=== PATIENT | female | born 1950 | race Caucasian/White ===

== ENCOUNTER 2018-05-23 18:32 | Emergency (ER) | payer MEDICARE ==
[2018-05-23 18:55] VITALS: RESP 18
--- NOTE | 2018-05-23 19:21 | ED ---
General Adult HPI - General Chief complaint: Recheck/Abnormal Lab/Rx Stated complaint: HTN Time Seen by Provider: 05/23/18 19:03 Source: patient, RN notes reviewed, old records reviewed Mode of arrival: ambulatory Limitations: no limitations - History of Present Illness Initial comments: 67-year-old female presented for evaluation of palpitations, dyspnea, and elevated blood pressure. Patient's chief complaint is elevated blood pressure, she noted a blood pressure of 198/115 at home. No history of hypertension. She states that with this she had a flushed feeling and felt some palpitations. She denies chest pain associated with this. No jaw pain, no neck pain. She has had dyspnea for the past 20 years which is unchanged. She also has anxiety and panic attacks. She was recently told by her electrical project manager that she has mitral regurgitation and will eventually need surgery. She denies any worsening lower extremity swelling or edema. No recent medication changes. Patient has known history of mitral prolapse. No history of A. fib, no history of CAD. - Related Data Allergies Allergy/AdvReac Type Severity Reaction Status Date / Time Penicillins Allergy Swelling Verified 05/23/18 18:55 Review of Systems ROS Statement: Those systems with pertinent positive or pertinent negative responses have been documented in the HPI. ROS Other: All systems not noted in ROS Statement are negative. Past Medical History Past Medical History: Hyperlipidemia, Thyroid Disorder Additional Past Medical History / Comment(s): bacteriavium, valve regurgatation History of Any Multi-Drug Resistant Organisms: None Reported Additional Past Surgical History / Comment(s): back surgery, bacteriavium removal, stomach surgery Past Psychological History: Anxiety, Panic Disorder Smoking Status: Former smoker Past Alcohol Use History: None Reported Past Drug Use History: None Reported General Exam Limitations: no limitations General appearance: alert, in no apparent distress Head exam: Present: atraumatic, normocephalic Eye exam: Present: normal appearance, PERRL ENT exam: Present: normal exam Neck exam: Present: normal inspection. Absent: tenderness, meningismus Respiratory exam: Present: normal lung sounds bilaterally. Absent: respiratory distress, rales Cardiovascular Exam: Present: tachycardia, irregular rhythm, systolic murmur GI/Abdominal exam: Present: soft. Absent: distended, tenderness, guarding Extremities exam: Present: normal capillary refill. Absent: pedal edema Neurological exam: Present: alert, oriented X3, CN II-XII intact. Absent: motor sensory deficit Psychiatric exam: Present: normal affect, normal mood Skin exam: Present: warm, dry, intact. Absent: cyanosis, diaphoretic Course Vital Signs 05/23/18 05/23/18 05/23/18 18:51 21:30 21:40 Temperature 98.8 F 98.1 F Pulse Rate 118 H Respiratory 18 18 Rate Blood Pressure 160/83 150/79 O2 Sat by Pulse 96 95 Oximetry EKG Findings - EKG Comments: EKG Findings:: EKG: Sinus rhythm with PACs, Q waves in the inferior leads, ventricular rate 94, W[place] interval 138, no ST segment elevation or depression Medical Decision Making - Medical Decision Making 67-year-old female presenting with elevated blood pressure. Patient does report dyspnea although this has been present for the past 20 years. She was concerned because she was recently told that she has mitral regurgitation and may require surgery. On examination has no clinical signs of heart failure, no JVD, no rales on lung auscultation, no peripheral edema. Chest x-ray obtained, negative for pulmonary disease, no cardiomegaly, patient has normal CBC, normal CMP, troponin and BNP are negative. Patient is reassured and reevaluation. She has significantly improved blood pressure although she is mildly hypertensive 150/89. Heart rate is in the 80s regular. She will be given outpatient cardiology follow-up. - Lab Data Result diagrams: 05/23/18 19:47 05/23/18 19:47 Lab Results 05/23/18 05/23/18 05/23/18 Range/Units 19:47 19:47 19:47 WBC 5.6 (3.8-10.6) k/uL RBC 4.30 (3.80-5.40) m/uL Hgb 13.8 (11.4-16.0) gm/dL Hct 42.2 (34.0-46.0) % MCV 98.1 (80.0-100.0) fL MCH 32.1 (25.0-35.0) pg MCHC 32.8 (31.0-37.0) g/dL RDW 13.2 (11.5-15.5) % Plt Count 232 (150-450) k/uL Neutrophils % 54 % Lymphocytes % 33 % Monocytes % 6 % Eosinophils % 5 % Basophils % 1 % Neutrophils # 3.0 (1.3-7.7) k/uL Lymphocytes # 1.8 (1.0-4.8) k/uL Monocytes # 0.3 (0-1.0) k/uL Eosinophils # 0.3 (0-0.7) k/uL Basophils # 0.1 (0-0.2) k/uL PT (9.0-12.0) sec INR (<1.2) APTT (22.0-30.0) sec Sodium 140 (137-145) mmol/L Potassium 3.9 (3.5-5.1) mmol/L Chloride 106 (98-107) mmol/L Carbon Dioxide 25 (22-30) mmol/L Anion Gap 9 mmol/L BUN 16 (7-17) mg/dL Creatinine 0.64 (0.52-1.04) mg/dL Est GFR (CKD-EPI)AfAm >90 (>60 ml/min/1.73 sqM) Est GFR (CKD-EPI)NonAf >90 (>60 ml/min/1.73 sqM) Glucose 206 H (74-99) mg/dL Calcium 9.2 (8.4-10.2) mg/dL Magnesium 2.0 (1.6-2.3) mg/dL Total Bilirubin 0.4 (0.2-1.3) mg/dL AST 32 (14-36) U/L ALT 30 (9-52) U/L Alkaline Phosphatase 82 (38-126) U/L Total Creatine Kinase 254 H (30-135) U/L CK-MB (CK-2) 2.8 H (0.0-2.4) ng/mL CK-MB (CK-2) Rel Index 1.1 Troponin I <0.012 (0.000-0.034) ng/mL NT-Pro-B Natriuret Pep pg/mL Total Protein 7.2 (6.3-8.2) g/dL Albumin 4.1 (3.5-5.0) g/dL 05/23/18 05/23/18 Range/Units 19:47 19:47 WBC (3.8-10.6) k/uL RBC (3.80-5.40) m/uL Hgb (11.4-16.0) gm/dL Hct (34.0-46.0) % MCV (80.0-100.0) fL MCH (25.0-35.0) pg MCHC (31.0-37.0) g/dL RDW (11.5-15.5) % Plt Count (150-450) k/uL Neutrophils % % Lymphocytes % % Monocytes % % Eosinophils % % Basophils % % Neutrophils # (1.3-7.7) k/uL Lymphocytes # (1.0-4.8) k/uL Monocytes # (0-1.0) k/uL Eosinophils # (0-0.7) k/uL Basophils # (0-0.2) k/uL PT 9.8 (9.0-12.0) sec INR 1.0 (<1.2) APTT 23.6 (22.0-30.0) sec Sodium (137-145) mmol/L Potassium (3.5-5.1) mmol/L Chloride (98-107) mmol/L Carbon Dioxide (22-30) mmol/L Anion Gap mmol/L BUN (7-17) mg/dL Creatinine (0.52-1.04) mg/dL Est GFR (CKD-EPI)AfAm (>60 ml/min/1.73 sqM) Est GFR (CKD-EPI)NonAf (>60 ml/min/1.73 sqM) Glucose (74-99) mg/dL Calcium (8.4-10.2) mg/dL Magnesium (1.6-2.3) mg/dL Total Bilirubin (0.2-1.3) mg/dL AST (14-36) U/L ALT (9-52) U/L Alkaline Phosphatase (38-126) U/L Total Creatine Kinase (30-135) U/L CK-MB (CK-2) (0.0-2.4) ng/mL CK-MB (CK-2) Rel Index Troponin I (0.000-0.034) ng/mL NT-Pro-B Natriuret Pep 125 pg/mL Total Protein (6.3-8.2) g/dL Albumin (3.5-5.0) g/dL Disposition Clinical Impression: Hypertension Disposition: HOME SELF-CARE Condition: Good Instructions: Hypertension (ED), Mitral Regurgitation (ED) Is patient prescribed a controlled substance at d/c from ED?: No Referrals: Cindy Bear MD [Primary Care Provider] - 1-2 days Time of Disposition: 21:46
[2018-05-23 20:03] LABS: Basophils # (A) 0.1 k/uL (0-0.2); Basophils % (A) 1 %; Eosinophils # (A) 0.3 k/uL (0-0.7); Eosinophils % (A) 5 %; HCT 42.2 % (34.0-46.0); HGB 13.8 gm/dL (11.4-16.0); Lymphocytes # (A) 1.8 k/uL (1.0-4.8); Lymphocytes % (A) 33 %; MCH 32.1 pg (25.0-35.0); MCHC 32.8 g/dL (31.0-37.0); MCV 98.1 fL (80.0-100.0); Mean Platelet Volume 6.9; Monocytes # (A) 0.3 k/uL (0-1.0); Monocytes % (A) 6 %; Neutrophils % (A) 54 %; Platelet Count 232 k/uL (150-450); RDW 13.2 % (11.5-15.5); WBC 5.6 k/uL (3.8-10.6)
[2018-05-23 20:16] LABS: Partial Thromboplastin Time 23.6 sec (22.0-30.0); Prothrombin Time 9.8 sec (9.0-12.0)
[2018-05-23 20:17] LABS: ALT 30 U/L (9-52); AST 32 U/L (14-36); Albumin 4.1 g/dL (3.5-5.0); Alkaline Phosphatase 82 U/L (38-126); Anion Gap 9 mmol/L; Blood Urea Nitrogen 16 mg/dL (7-17); Calcium 9.2 mg/dL (8.4-10.2); Carbon Dioxide 25 mmol/L (22-30); Chloride 106 mmol/L (98-107); Glucose 206 mg/dL (74-99); Potassium 3.9 mmol/L (3.5-5.1); Sodium 140 mmol/L (137-145); Total Bilirubin 0.4 mg/dL (0.2-1.3); Total Protein 7.2 g/dL (6.3-8.2)
--- NOTE | 2018-05-23 20:28 | XR ---
EXAMINATION TYPE: XR chest 2V DATE OF EXAM: 05/23/2018 COMPARISON: NONE HISTORY: Chest pain TECHNIQUE: Frontal and lateral views of the chest are obtained. FINDINGS: Heart and mediastinum are normal. Lungs are clear. Diaphragm is normal. Bony thorax is int act. Pulmonary vascularity is normal. IMPRESSION: Normal chest. No change.
[2018-05-23 20:30] LABS: Creatine Kinase 254 U/L (30-135)
[2018-05-23 20:42] LABS: Creatine Kinase MB 2.8 ng/mL (0.0-2.4); Troponin I <0.012 ng/mL (0.000-0.034)
[2018-05-23 21:39] VITALS: BP 150/79
[2018-05-23 21:40] VITALS: TEMP 98.1
--- NOTE | 2018-05-23 21:49 | ED ---
Medical Decision Making - Lab Data Result diagrams: 05/23/18 19:47 05/23/18 19:47 Lab Results 05/23/18 05/23/18 05/23/18 Range/Units 19:47 19:47 19:47 WBC 5.6 (3.8-10.6) k/uL RBC 4.30 (3.80-5.40) m/uL Hgb 13.8 (11.4-16.0) gm/dL Hct 42.2 (34.0-46.0) % MCV 98.1 (80.0-100.0) fL MCH 32.1 (25.0-35.0) pg MCHC 32.8 (31.0-37.0) g/dL RDW 13.2 (11.5-15.5) % Plt Count 232 (150-450) k/uL Neutrophils % 54 % Lymphocytes % 33 % Monocytes % 6 % Eosinophils % 5 % Basophils % 1 % Neutrophils # 3.0 (1.3-7.7) k/uL Lymphocytes # 1.8 (1.0-4.8) k/uL Monocytes # 0.3 (0-1.0) k/uL Eosinophils # 0.3 (0-0.7) k/uL Basophils # 0.1 (0-0.2) k/uL PT (9.0-12.0) sec INR (<1.2) APTT (22.0-30.0) sec Sodium 140 (137-145) mmol/L Potassium 3.9 (3.5-5.1) mmol/L Chloride 106 (98-107) mmol/L Carbon Dioxide 25 (22-30) mmol/L Anion Gap 9 mmol/L BUN 16 (7-17) mg/dL Creatinine 0.64 (0.52-1.04) mg/dL Est GFR (CKD-EPI)AfAm >90 (>60 ml/min/1.73 sqM) Est GFR (CKD-EPI)NonAf >90 (>60 ml/min/1.73 sqM) Glucose 206 H (74-99) mg/dL Calcium 9.2 (8.4-10.2) mg/dL Magnesium 2.0 (1.6-2.3) mg/dL Total Bilirubin 0.4 (0.2-1.3) mg/dL AST 32 (14-36) U/L ALT 30 (9-52) U/L Alkaline Phosphatase 82 (38-126) U/L Total Creatine Kinase 254 H (30-135) U/L CK-MB (CK-2) 2.8 H (0.0-2.4) ng/mL CK-MB (CK-2) Rel Index 1.1 Troponin I <0.012 (0.000-0.034) ng/mL NT-Pro-B Natriuret Pep pg/mL Total Protein 7.2 (6.3-8.2) g/dL Albumin 4.1 (3.5-5.0) g/dL 05/23/18 05/23/18 Range/Units 19:47 19:47 WBC (3.8-10.6) k/uL RBC (3.80-5.40) m/uL Hgb (11.4-16.0) gm/dL Hct (34.0-46.0) % MCV (80.0-100.0) fL MCH (25.0-35.0) pg MCHC (31.0-37.0) g/dL RDW (11.5-15.5) % Plt Count (150-450) k/uL Neutrophils % % Lymphocytes % % Monocytes % % Eosinophils % % Basophils % % Neutrophils # (1.3-7.7) k/uL Lymphocytes # (1.0-4.8) k/uL Monocytes # (0-1.0) k/uL Eosinophils # (0-0.7) k/uL Basophils # (0-0.2) k/uL PT 9.8 (9.0-12.0) sec INR 1.0 (<1.2) APTT 23.6 (22.0-30.0) sec Sodium (137-145) mmol/L Potassium (3.5-5.1) mmol/L Chloride (98-107) mmol/L Carbon Dioxide (22-30) mmol/L Anion Gap mmol/L BUN (7-17) mg/dL Creatinine (0.52-1.04) mg/dL Est GFR (CKD-EPI)AfAm (>60 ml/min/1.73 sqM) Est GFR (CKD-EPI)NonAf (>60 ml/min/1.73 sqM) Glucose (74-99) mg/dL Calcium (8.4-10.2) mg/dL Magnesium (1.6-2.3) mg/dL Total Bilirubin (0.2-1.3) mg/dL AST (14-36) U/L ALT (9-52) U/L Alkaline Phosphatase (38-126) U/L Total Creatine Kinase (30-135) U/L CK-MB (CK-2) (0.0-2.4) ng/mL CK-MB (CK-2) Rel Index Troponin I (0.000-0.034) ng/mL NT-Pro-B Natriuret Pep 125 pg/mL Total Protein (6.3-8.2) g/dL Albumin (3.5-5.0) g/dL Disposition Clinical Impression: Hypertension Disposition: HOME SELF-CARE Condition: Good Instructions: Mitral Regurgitation (ED), Hypertension (ED) Is patient prescribed a controlled substance at d/c from ED?: No Referrals: Cindy Bear MD [Primary Care Provider] - 1-2 days Justin Herring MD [STAFF PHYSICIAN] - 1-2 days Time of Disposition: 21:48
[2018-05-23 22:22] VITALS: PULSE 84
== END 2018-05-23 21:55 | disposition home or self-care (01) ==
LOC: EC 18:32
DX: I10 Essential (primary) hypertension (principal); R00.2 Palpitations; F41.0 Panic disorder [episodic paroxysmal anxiety]; Z87.891 Personal history of nicotine dependence; Z88.0 Allergy status to penicillin
CPT/HCPCS: 36415; 71046; 80053; 82550; 82553; 83735; 83880; 84484; 85025; 85610; 85730; 93005; 99284

== ENCOUNTER → 2018-08-16 | Outpatient (CLI) | payer MEDICARE ==
[2018-08-16 13:33] LABS: HCT 41.5 % (34.0-46.0); HGB 13.8 gm/dL (11.4-16.0); MCH 32.2 pg (25.0-35.0); MCHC 33.4 g/dL (31.0-37.0); MCV 96.5 fL (80.0-100.0); Mean Platelet Volume 7.1; Platelet Count 238 k/uL (150-450); RDW 12.9 % (11.5-15.5); WBC 5.6 k/uL (3.8-10.6)
[2018-08-16 13:34] LABS: Appearance,Urine Clear (Clear); Bilirubin,Urine Negative (Negative); Blood,Urine Negative (Negative); Color,Urine Yellow; Glucose,Urine (UA) Negative (Negative); Ketones,Urine Negative (Negative); Leukocyte Esterase,Urine Negative (Negative); Nitrite,Urine Negative (Negative); PH, Urine 6.5 (5.0-8.0); Protein,Urine Negative (Negative); Specific Gravity,Urine 1.018 (1.001-1.035)
[2018-08-16 13:42] LABS: ALT 33 U/L (9-52); AST 25 U/L (14-36); Albumin 4.6 g/dL (3.5-5.0); Alkaline Phosphatase 88 U/L (38-126); Anion Gap 5 mmol/L; Blood Urea Nitrogen 15 mg/dL (7-17); Calcium 9.5 mg/dL (8.4-10.2); Carbon Dioxide 31 mmol/L (22-30); Chloride 103 mmol/L (98-107); Glucose 97 mg/dL (74-99); Potassium 4.8 mmol/L (3.5-5.1); Sodium 139 mmol/L (137-145); Total Bilirubin 0.6 mg/dL (0.2-1.3); Total Protein 7.6 g/dL (6.3-8.2)
[2018-08-16 13:45] LABS: INR 0.9 (<1.2); Partial Thromboplastin Time 24.3 sec (22.0-30.0); Prothrombin Time 10.1 sec (9.0-12.0)
== END | disposition home or self-care (01) ==
LOC: LABPAT 12:49
PROVIDERS: ATTEND Orthopaedic Surgery
DX: Z01.812 Encounter for preprocedural laboratory examination (principal)
CPT/HCPCS: 80053; 81003; 85027; 85610; 85730; 87070

== ENCOUNTER 2018-08-31 12:40 | Inpatient (IN) | payer MEDICARE ==
[2018-08-24 18:09] VITALS: BMI 29.7
[~2018-08-31 12:40] MED LIST: ACETAMINOPHEN TAB 500 MG TAB PO ONE; DEXAMETHASONE SOD PHOSPHATE 10 MG/ML 1 ML VIAL IV ONE; HYDROmorphone 0.5 MG/0.5 ML SYRINGE IVP PRN; LIDOCAINE 1% 20 ML VIAL (10MG/ML) FOR IV START INTRADERMA PRN; MELOXICAM 7.5 MG TAB PO ONE; ONDANSETRON 4 MG/2 ML VIAL IVP ONE; ROPIVACAINE 246.25 MG, EPINEPHrine 0.5 MG, KETOROLAC 30 MG, cloNIDine HCL/PF 80 MCG, WA... MISCELLANE ONE; SCOPOLAMINE 1.5MG/72HR PATCH TRANSDERM ONE; TRANEXAMIC ACID 1,000 MG in SODIUM CHLORIDE 0.9% 50 ML IVPB ONE; ceFAZolin IN SWFI 2 GM/20 ML SYRINGE IVP ONE
[2018-08-31] MEDS: LACTATED RINGERS 1,000 ML IV SCH (13:37)
[2018-08-31 13:47] LABS: Glucose,Whole Blood 103 mg/dL (75-99)
[2018-08-31] MEDS ORDERED: MIDAZOLAM 2 MG/2 ML VIAL IVP ONE (14:16)
[2018-08-31] MEDS ORDERED: PROPOFOL 10 MG/ML 20 ML VIAL IV ONE (14:32)
[2018-08-31] MEDS ORDERED: fentaNYL (PF) 50 MCG/ML 2 ML AMP ONE (14:32)
[2018-08-31] MEDS ORDERED: SODIUM CHLORIDE 0.9% 100 ML BAG ONE (14:32)
[2018-08-31] MEDS ORDERED: MIDAZOLAM 2 MG/2 ML VIAL ONE (14:32)
[2018-08-31] MEDS ORDERED: TRANEXAMIC ACID 1,000 MG/10 ML VIAL ONE (14:32)
[2018-08-31] MEDS ORDERED: ROPIVACAINE 1,100 MG, SODIUM CHLORIDE 0.9% 500 ML 330 ML MISCELLANE PRN ×2 (14:35)
--- NOTE | 2018-08-31 14:36 | P.ONQ ---
Anesthesiology Proc Note - PNB - Peripheral Nerve Block Performed Left Adductor Canal Infusion Time Out Performed: Yes Procedure Start Time: 14:15 Procedure Stop Time: 14:25 Indication: Acute Post-Operative Pain, Analgesia, Requested by physician Sedation Type: Sedate with meaningful contact maintained Preparation: Sterile Prep Position: Supine Catheter: Indwelling Needle Types: On-Q Needle Size: 100mm (4") Needle Gauge: 21 Technique: Ultrasound Injectate: 0.5% Ropivacaine (see comment for volume) (20cc) Blood Aspirated: No Pain Paresthesia on Injection Noted: No Resistance on Injection: Normal Events: Uneventful and Well Tolerated
[2018-08-31] MEDS ORDERED: ceFAZolin 3,000 MG in SODIUM CHLORIDE 0.9% IRRIGATIO 3,000 ML IRRIGATION ONE (15:22)
[2018-08-31] MEDS ORDERED: LACTATED RINGERS 1,000 ML IV ONE (16:08)
--- NOTE | 2018-08-31 16:08 | P.OP ---
Date of Procedure: 08/31/18 Preoperative Diagnosis: Severe osteoarthritis left knee Postoperative Diagnosis: Severe osteoarthritis left knee Procedure(s) Performed: left total knee arthroplasty Implants: Ac and Nephew Journey II CR Oxinium cruciate retaining femoral component size 5, left Ac & Nephew Journey left nonporous tibial baseplate size 3 Ac & Nephew Journey II, XLPE CR articular insert, size 12 mm, Size 3-4 left Ac & Nephew Journey BCS resurfacing oval patellar component, 29 mm All components were cemented using Pal[place]os R bone cement.. The articulation is Oxinium on polyethylene. Anesthesia: spinal Surgeon: Tutu Victor Oil Expert #1: Delfina Yanes Estimated Blood Loss (ml): 25 Pathology: other (Bone and cartilage) Condition: stable Disposition: PACU Indications for Procedure: After failure of conservative treatment we discussed the surgical and nonsurgical treatment options at length. Patient wishes to proceed with a total knee arthroplasty. Complications specific to this procedure were discussed at length, including but not limited to infection, bleeding, stiffness , and nerve injury. Patient is aware of all these complications and informed consent was obtained Operative Findings: The operative findings are consistent with severe osteoarthritis of the left knee Description of Procedure: Patient was seen in the preoperative area consent was reviewed and operative site was marked with a skin marker. An adductor canal pain catheter was placed by anesthesia in the preoperative area. Patient was then brought to the operating room and given preoperative antibiotics intravenously. A spinal anesthetic was administered by the anesthesia department. A tourniquet was placed on the upper thigh and the lower extremity was prepped and draped in usual sterile fashion. A gram of transexamic acid was given. A universal timeout was then performed which confirmed the patient's name, surgical site, ALLERGIES, and consent. The lower extremity was then exsanguinated and tourniquet was inflated to 250 mmHg. A standard and anterior midline approach to the knee was performed. The skin and subcutaneous tissue was dissected down to the patellar tendon. A medial parapatellar arthrotomy was then performed. The knee was then extended, the patellar was everted, and the knee was again flexed. Anterior horns of both menisci were excised, and a release was performed to the posterior medial aspect of the knee. On gross visual inspection, there was complete loss of articular cartilage in the medial and patellofemoral joint spaces. There was also significant cartilage damage in the lateral compartment. There were multiple periarticular osteophytes which were then removed with a Ronguer. The femoral canal was then opened with the appropriate drill, and the intramedullary femoral cutting guide was then placed and set for 5 of valgus. The distal femoral cutting block was then pinned in place, and the distal femur was then cut. The cutting block was then removed and the cut was checked for flatness. Next, the sizing guide was then placed and set for 3 external rotation based off of the epicondylar axis and Whitesides line. After the femur was sized, the appropriate 4-in-1 cutting block was then pinned in place. The anterior condyles were cut without notching. The posterior and chamfer cuts were performed while protecting the collateral ligaments. The cutting block was then removed, and the femoral canal was plugged with autologous bone. Attention was then directed to the tibia. The remaining ACL was removed with a Ronguer, and the tibia was then gently subluxed forward with a large bent knee retractor. Any remaining menisci was excised. The posterior lateral corner was cauterized in order to cauterize the lateral geniculate artery. The extra medullary tibial cutting guide was then placed, set for the appropriate rotation , slope, and depth of resection. The proximal tibia cutting guide was then pinned in place. Proximal tibia was then cut and sized. Next trials were then placed with the appropriate-sized insert. The knee was able to fully extend and flex to 130 and was stable throughout all range of motion. The knee was then extended, patella everted. Patella was then measured, and then using an osteotomy guide, the patella was cut at the appropriate level. The patella was then measured and drilled and the patella trial was then placed. The knee was then taken through range of motion with the patella trial and the patella tracked normally. The knee was then extended patella trial was then removed and the patella was everted. Knee was then flexed and lug holes were drilled through the femoral trial and the femoral trial was then removed. The tibial was then exposed, and the tibial broach guide was then pinned in place after it was set for the appropriate rotation to allow for the most coverage without overhang. The tibia was then reamed and broached. The cut surfaces of bone were then irrigated with pulsatile lavage. The posterior structures were injected with the ropivacaine solution. The knee was also irrigated with Irrisept solution. The components were then opened, the cement was mixed, and the components were then cemented in place. The cement was allowed to harden with the knee in full extension. While the cement was hardening, the remaining soft tissues were then injected with a ropivacaine solution, which consisted of 246.25 mg of ropivacaine, 0.5 mg of epinephrine, 30 mg of Toradol, 80 g of clonidine, and 48.45 mL of sterile water, for a total of 100 mL of fluid injected. After the cemented hardened. The tourniquet was released, and hemostasis was obtained. A second gram of transexamic acid was given. The knee was again irrigated. The knee was again taken through range of motion and found to be stable throughout all range of motion of 0-130 , and the patella tracked normally. The fascia was then closed with #2 strata fix suture. The subcutaneous tissue was closed with 3-0 Vicryl and 3-0 strata fix. Dermabond glue was used for the skin and placed with the knee in flexion. The patient was placed in a sterile silver dressing. Patient was then transferred to recovery room in stable condition. The clinical physician assistant SANJUANA Montgomery was required due the complexity surgery and the need for a skilled surgical clinical reviewer. She assisted in positioning, draping, retraction, and closure of the wound.
[2018-08-31] MEDS ORDERED: HYDROmorphone 0.5 MG/0.5 ML SYRINGE IVP PRN ×3 (16:32)
[2018-08-31] MEDS ORDERED: BISACODYL 10 MG SUPP RECTAL PRN (16:32)
[2018-08-31] MEDS ORDERED: ONDANSETRON 4 MG/2 ML VIAL IVP PRN (16:32)
[2018-08-31] MEDS ORDERED: NA PHOS,M-B/NA PHOS,DI-BA 133 ML ENEMA RECTAL PRN (16:32)
[2018-08-31] MEDS ORDERED: HYDROcodone/APAP 5-325MG 1 EACH TAB PO PRN (16:32)
[2018-08-31] MEDS ORDERED: DIAZEPAM 5 MG TAB PO PRN (16:32)
[2018-08-31] MEDS ORDERED: hydrOXYzine PAMOATE 25 MG CAP PO PRN (16:32)
[2018-08-31] MEDS ORDERED: NALOXONE 0.4 MG/ML 1 ML VIAL IV PRN (16:32)
[2018-08-31] MEDS ORDERED: MAGNESIUM HYDROXIDE 2,400 MG/10 ML CUP PO PRN (16:32)
[2018-08-31] MEDS ORDERED: SODIUM CHLORIDE 0.9% 1,000 ML IV SCH (16:45)
--- NOTE | 2018-08-31 17:35 | XR ---
PROCEDURE: XR knee limited LT - 2V DATE AND TIME: 08/31/2018 4:51 PM CLINICAL INDICATION: PHH; Evaluation for Postop abnormality and alignment TECHNIQUE: Department protocol COMPARISON: None FINDINGS: Left TKR in anatomic position and alignment. Postoperative changes noted. No unexpected fin dings IMPRESSION: Postoperative 2 views.
[2018-08-31] MEDS: HYDROcodone/APAP 5-325MG 1 EACH TAB PO PRN (20:21)
[2018-08-31] MEDS: ASPIRIN 325 MG TAB PO SCH (20:22)
[2018-08-31] MEDS ORDERED: SENNOSIDES-DOCUSATE SODIUM 1 EACH TAB PO SCH (21:00)
[2018-09-01] MEDS: ceFAZolin IN SWFI 2 GM/20 ML SYRINGE IVP SCH ×2 (01:58→08:25)
[2018-09-01] MEDS: HYDROcodone/APAP 5-325MG 1 EACH TAB PO PRN ×2 (05:44→11:15)
[2018-09-01 07:44] VITALS: BP 165/66; PULSE 93; RESP 16; TEMP 98.6
[2018-09-01 07:48] LABS: Basophils % (A) 0 %; Eosinophils % (A) 0 %; HCT 34.9 % (34.0-46.0); HGB 11.3 gm/dL (11.4-16.0); Lymphocytes # (A) 1.4 k/uL (1.0-4.8); Lymphocytes % (A) 12 %; MCH 31.3 pg (25.0-35.0); MCHC 32.4 g/dL (31.0-37.0); MCV 96.8 fL (80.0-100.0); Mean Platelet Volume 6.7; Monocytes # (A) 0.6 k/uL (0-1.0); Monocytes % (A) 5 %; Neutrophils # (A) 9.2 k/uL (1.3-7.7); Neutrophils % (A) 82 %; Platelet Count 202 k/uL (150-450); RBC 3.61 m/uL (3.80-5.40); RDW 12.7 % (11.5-15.5); WBC 11.3 k/uL (3.8-10.6)
[2018-09-01] MEDS: ASPIRIN 325 MG TAB PO SCH (08:09)
[2018-09-01] MEDS: LACTATED RINGERS 1,000 ML IV SCH (08:25)
[2018-09-01] MEDS ORDERED: MELOXICAM 7.5 MG TAB PO SCH (09:00)
--- NOTE | 2018-09-01 09:27 | P.DS ---
Providers Date of admission: 08/31/18 13:01 Expected date of discharge: 09/01/18 Attending physician: Tutu Victor Consults: 08/31/18 16:32 Consult Physician Routine Consulting Provider: Cindy Bear Consult Reason/Comments: medical management Do you want consulting provider notified?: Yes 08/31/18 17:25 Consult Physician Routine Consulting Provider: Chris Leger Consult Reason/Comments: medical management Do you want consulting provider notified?: Already Contacted Primary care physician: Cindy Bear - Discharge Diagnosis(es) (1) Primary osteoarthritis of left knee Current Visit: Yes Status: Acute (2) Status post total left knee replacement Current Visit: Yes Status: Acute Hospital Course: This is a 67-year-old female with known history of degenerative arthritis of the left knee. The patient presents for evaluation. After discussion and consideration patient elects to proceed with total knee arthroplasty. The patient is seen preoperatively by Dr. Victor and medically cleared for surgery by their primary care physician. Patient is admitted to [facility] on 08/31/2018 for total knee arthroplasty. The procedures performed without complication or sequelae. The patient is doing well postoperatively. Labs and vital signs are stable on day of discharge. On day of discharge patient's knee incision is healing well. There is minimal erythema. There is no drainage noted at this time. There is minimal soft tissue swelling to the knee. Patient has full foot and ankle motion without difficulty or pain. Neurovascular status to the left lower extremity is intact. Patient is discharged home in good condition. Please see med rec for accurate list of home medications. Plan - Discharge Summary Discharge Rx Participant: Yes New Discharge Prescriptions: New Aspirin 325 mg PO BID #60 tab HYDROcodone/APAP 5-325MG [[place] 5-325] 1 - 2 tab PO Q4-6H PRN #84 tab PRN Reason: Pain Sennosides [Senokot] 1 tab PO BID #60 tablet No Action Levothyroxine Sodium [Synthroid] 75 mcg PO DAILY Citalopram Hydrobromide [CeleXA] 20 mg PO HS Atorvastatin [Lipitor] 10 mg PO HS Aspirin 81 mg PO DAILY Melatonin 5 mg PO HS Discharge Medication List Aspirin 81 mg PO DAILY 08/25/18 [History] Atorvastatin [Lipitor] 10 mg PO HS 08/25/18 [History] Citalopram Hydrobromide [CeleXA] 20 mg PO HS 08/25/18 [History] Levothyroxine Sodium [Synthroid] 75 mcg PO DAILY 08/25/18 [History] Melatonin 5 mg PO HS 08/25/18 [History] Aspirin 325 mg PO BID #60 tab 09/01/18 [Rx] HYDROcodone/APAP 5-325MG [[place] 5-325] 1 - 2 tab PO Q4-6H PRN #84 tab 09/01/18 [ Rx] Sennosides [Senokot] 1 tab PO BID #60 tablet 09/01/18 [Rx] Follow up Appointment(s)/Referral(s): Tutu Victor DO [Doctor of Osteopathic Medicine] - 2 Weeks Ambulatory/Diagnostic Orders: Continuous Passive Motion (CPM) Machine [DME.AMB1] Time Frame: 3 Weeks, Location : None Selected Activity/Diet/Wound Care/Special Instructions: Weightbearing as tolerated with a walker. CPM 5-6h daily. Leave dressing intact. May be removed by home care nurse in 10 days. May shower with dressing on. Please follow up with [facility] and call with any questions or concerns, . Discharge Disposition: HOME WITH HOME HEALTH SERVICES
== END 2018-09-01 11:31 | disposition home health service (06) | DRG 470 ==
LOC: 2ORMAIN 13:01 → 4SSUR 17:19
PROVIDERS: ADMIT Orthopaedic Surgery; ATTEND Orthopaedic Surgery
PROC: 0SRD069 Replacement of Left Knee Joint with Oxidized Zirconium on Polyethylene Synthetic Substitute, Cemented, Open Approach (ICD-10-PCS; principal; 2018-08-31 16:10)
DX: M17.12 Unilateral primary osteoarthritis, left knee (principal); M16.11 Unilateral primary osteoarthritis, right hip; I25.10 Atherosclerotic heart disease of native coronary artery without angina pectoris; R73.03 Prediabetes; E78.5 Hyperlipidemia, unspecified; Z79.82 Long term (current) use of aspirin; Z79.890 Hormone replacement therapy; Z79.899 Other long term (current) drug therapy; Z88.0 Allergy status to penicillin; Z87.891 Personal history of nicotine dependence; Z96.642 Presence of left artificial hip joint; Z82.49 Family history of ischemic heart disease and other diseases of the circulatory system
CPT/HCPCS: 85025; 88300

== ENCOUNTER 2019-01-18 12:57 | Day surgery (SDC) | payer MEDICARE ==
[~2019-01-18 12:57] MED LIST changes: -ACETAMINOPHEN TAB 500 MG TAB PO ONE; -DEXAMETHASONE SOD PHOSPHATE 10 MG/ML 1 ML VIAL IV ONE; -HYDROmorphone 0.5 MG/0.5 ML SYRINGE IVP PRN; +LACTATED RINGERS 1,000 ML IV SCH; -LIDOCAINE 1% 20 ML VIAL (10MG/ML) FOR IV START INTRADERMA PRN; -MELOXICAM 7.5 MG TAB PO ONE; -ONDANSETRON 4 MG/2 ML VIAL IVP ONE; +Pre Op ABX Message 1 EACH MISC MISCELLANE ONE; -ROPIVACAINE 246.25 MG, EPINEPHrine 0.5 MG, KETOROLAC 30 MG, cloNIDine HCL/PF 80 MCG, WA... MISCELLANE ONE; -SCOPOLAMINE 1.5MG/72HR PATCH TRANSDERM ONE; -TRANEXAMIC ACID 1,000 MG in SODIUM CHLORIDE 0.9% 50 ML IVPB ONE; -ceFAZolin IN SWFI 2 GM/20 ML SYRINGE IVP ONE
[2019-01-18 13:25] VITALS: TEMP 97.7
[2019-01-18 13:27] LABS: Glucose,Whole Blood 110 mg/dL (75-99)
[2019-01-18] MEDS ORDERED: PROPOFOL 10 MG/ML 20 ML VIAL IV ONE (13:46)
[2019-01-18] MEDS ORDERED: KETOROLAC 30 MG/ML 1 ML VIAL ONE (13:46)
[2019-01-18] MEDS ORDERED: KETOROLAC 30 MG/ML 1 ML VIAL IVP ONE (13:49)
[2019-01-18] MEDS ORDERED: BUPIVACAINE (PF) 0.5% 30 ML VIAL INTRAARTIC ONE (13:53)
[2019-01-18] MEDS ORDERED: methylPREDNISolone ACETATE 80 MG/ML 1 ML VIAL INJ ONE (13:53)
[2019-01-18 14:24] VITALS: RESP 16
[2019-01-18 14:39] VITALS: PULSE 65
[2019-01-18 14:55] VITALS: BP 154/83
--- NOTE | 2019-01-18 16:26 | P.OP ---
Date of Procedure: 01/18/19 Preoperative Diagnosis: Arthrofibrosis left knee Postoperative Diagnosis: Arthrofibrosis left knee Procedure(s) Performed: Manipulation under anesthesia of the left knee with intra-articular cortisone injection Anesthesia: MAC Surgeon: Tutu Victor Estimated Blood Loss (ml): 0 Pathology: none sent Condition: stable Disposition: PACU Indications for Procedure: This is a 68-year-old female that had a left total knee performed by myself on 08/31/2018. She subsequently developed arthrofibrosis of her left knee despite aggressive physical therapy. After discussing the surgical nonsurgical treatment options with her at length, I recommended a manipulation under anesthesia with intra-articular cortisone injection. Informed consent was obtained. Operative Findings: The operative findings are consistent with arthrofibrosis of the left knee. Her preoperative flexion was 95, and her postoperative flexion was 125. She had full extension pre-and postop. Description of Procedure: The patient was seen in the preoperative area, the operative site was marked with a skin marker. The patient was then brought to the postoperative care unit and administered an anesthetic by the anesthesia department. A universal timeou t was performed confirming the patient's name, surgical site, ALLERGIES, and consent. Procedure began by examining her left knee. She had full active extension and flexion was limited to 95. A gentle manipulation was performed with multiple adhesions felt to be released. Final flexion was 125 which was easily obtained. The lateral aspect of the knee was then sterilized with a chlorhexidine solution. Next 80 mg of Depo-Medrol and 5 mL of half percent bupivacaine plain were injected sterilely into the left knee. A sterile Band-Aid was placed and patient tolerated the procedure well.
== END 2019-01-18 15:47 | disposition home or self-care (01) ==
LOC: OR 12:57
PROVIDERS: ATTEND Orthopaedic Surgery
DX: M24.662 Ankylosis, left knee (principal); E78.5 Hyperlipidemia, unspecified; R00.2 Palpitations; R73.03 Prediabetes; E07.9 Disorder of thyroid, unspecified; F41.9 Anxiety disorder, unspecified; Z96.652 Presence of left artificial knee joint; Z87.891 Personal history of nicotine dependence; Z79.1 Long term (current) use of non-steroidal anti-inflammatories (NSAID); Z79.82 Long term (current) use of aspirin; Z79.890 Hormone replacement therapy; Z79.891 Long term (current) use of opiate analgesic; Z79.899 Other long term (current) drug therapy; Z88.0 Allergy status to penicillin
CPT/HCPCS: 27570; J1040; J1885; J2704

== ENCOUNTER → 2020-03-09 | Outpatient (CLI) | payer MEDICARE ==
--- NOTE | 2020-03-09 10:05 | US ---
EXAMINATION TYPE: US extremity nonvasculr ltd LT DATE OF EXAM: 03/09/2020 COMPARISON: NONE CLINICAL HISTORY: M25.562 Pain in left knee,Z96.653,G89.29. No evidence of Matthews's cyst by today's ultrasound. IMPRESSION: No evidence for solid or cystic mass at this time.
== END | disposition home or self-care (01) ==
LOC: RADUSWWP 08:52
PROVIDERS: ATTEND Family Medicine
DX: G89.29 Other chronic pain (principal); Z96.653 Presence of artificial knee joint, bilateral

== ENCOUNTER → 2020-05-15 | Outpatient (CLI) | payer MEDICARE ==
--- NOTE | 2020-05-15 16:06 | CT ---
EXAMINATION TYPE: CT chest wo con DATE OF EXAM: 05/15/2020 COMPARISON: None HISTORY: Chronic shortness of breath x20 years. CT DLP: 328.3 mGycm, Automated exposure control for dose reduction was used. CONTRAST: Performed injected with 0 mL of Isovue 370. TECHNIQUE: Axial images were obtained at 5 mm thick sections. Reconstructed images are reviewed on [employer] computer in the coronal plane. FINDINGS: Portion of the thyroid visualized is normal. Postsurgical changes along the superior mediastinal border of the left lung No enlarged mediastinal or hilar adenopathy is evident. The ascending aorta diameter at the level o f the main pulmonary artery is 3.1 cm. The main pulmonary artery diameter at the bifurcation is 2.8 cm. Coronary artery calcification is present. Very minimal pericardial effusion may be present. Limited CT sections are obtained through the upper abdomen. Small hiatal hernia is present. IMPRESSIONS: 1. There appear to be postsurgical changes at the medial left apex. 2. No suspicious masses. 3. Minimal pericardial effusion may be present. 4. Small hiatal hernia
== END | disposition home or self-care (01) ==
LOC: RADCTMAIN 15:44
PROVIDERS: ATTEND Family Medicine
DX: K44.9 Diaphragmatic hernia without obstruction or gangrene (principal); Z98.890 Other specified postprocedural states
CPT/HCPCS: 71250

== ENCOUNTER 2020-06-07 07:17 | Day surgery (SDC) | payer MEDICARE ==
[2020-06-06 12:17] VITALS: BMI 30.5
[~2020-06-07 07:17] MED LIST changes: -Pre Op ABX Message 1 EACH MISC MISCELLANE ONE
[2020-06-07 07:39] VITALS: RESP 16; TEMP 97.8
[2020-06-07] MEDS ORDERED: LIDOCAINE 1% (10MG/ML) FOR IV START INTRADERMA ONE (07:44)
--- NOTE | 2020-06-07 08:02 | P.GSHP ---
History of Present Illness H&P Date: 06/07/20 Chief Complaint: GI bleed Is a 69-year-old female presents today for EGD and colonoscopy. She has issues with GI bleed. She's been Hemoccult-positive. Past Medical History Past Medical History: GERD/Reflux, Osteoarthritis (OA), Thyroid Disorder Additional Past Medical History / Comment(s): IRREGULAR HEARTBEAT History of Any Multi-Drug Resistant Organisms: None Reported Past Surgical History: Back Surgery, Heart Catheterization, Joint Replacement, Orthopedic Surgery Additional Past Surgical History / Comment(s): Lung surgery for bacteriavium removal, stomach surgery for acid reflux, left hip replacement, left knee arthroscopy.TOTAL LEFT KNEE Past Anesthesia/Blood Transfusion Reactions: No Reported Reaction Smoking Status: Former smoker - Past Family History Mother Family Medical History: Cancer Additional Family Medical History / Comment(s): BREAST CANCER Medications and Allergies Home Medications Medication Instructions Recorded Confirmed Type Atorvastatin [Lipitor] 10 mg PO HS 08/25/18 06/07/20 History Citalopram Hydrobromide [CeleXA] 20 mg PO HS 08/25/18 06/07/20 History Levothyroxine Sodium [Synthroid] 75 mcg PO HS 08/25/18 06/07/20 History Metoprolol Unknown Dose 1 tab PO DAILY 06/06/20 06/07/20 History Allergies Allergy/AdvReac Type Severity Reaction Status Date / Time Penicillins Allergy Swelling Verified 06/07/20 07:36 Surgical - Exam Vital Signs Temp Pulse Resp BP Pulse Ox 97.8 F 96 16 139/69 97 06/07/20 07:38 06/07/20 07:38 06/07/20 07:38 06/07/20 07:38 06/07/20 07:38 - General well developed, well nourished, no distress - Eyes PERRL - ENT normal pinna - Neck no masses - Respiratory normal expansion - Cardiovascular Rhythm: regular - Abdomen Abdomen: soft, non tender Assessment and Plan Assessment: GI bleed. We'll perform EGD and colonoscopy.
[2020-06-07] MEDS ORDERED: LIDOCAINE 1% INJ 10MG/ML (20 ML MDV) ONE (08:03)
[2020-06-07] MEDS ORDERED: PROPOFOL 10 MG/ML 20 ML VIAL IV ONE (08:03)
[2020-06-07] MEDS ORDERED: MIDAZOLAM 2 MG/2 ML VIAL ONE (08:03)
[2020-06-07] MEDS ORDERED: fentaNYL (PF) 50 MCG/ML 2 ML AMP ONE (08:03)
--- NOTE | 2020-06-07 08:24 | P.OP ---
Date of Procedure: 06/07/20 Preoperative Diagnosis: GI bleed Postoperative Diagnosis: Antral gastritis Normal colon Procedure(s) Performed: EGD Colonoscopy Anesthesia: LACIE Surgeon: Leno Cross Pathology: other (Antrum) Condition: stable Disposition: PACU Description of Procedure: The patient's placed on the endoscopy table lateral position. She received IV sedation. The gastro-placed oropharynx and passed into the esophagus and into the stomach. The scope was then placed through the pylorus. The first and second portion of the duodenum appeared normal. Scope was then brought back the antrum and this was mildly inflamed. A biopsies performed. The scope was then retroflexed and the remainder of the stomach appeared normal. There was no significant hiatal hernia. The GE junction was at 40 cm. The distal esophagus appeared normal. The proximal esophagus appeared normal. The scope was then brought back the patient. Next digital rectal exam is performed which revealed a few external hemorrhoids. The flexible colonoscope was then placed patient anus passed throughout the entire colon. The ileocecal valve was visualized. Cecum, ascending and transverse colon appeared normal. The descending and sigmoid colon appeared normal. Scope was then brought back the rectum this appeared normal. Scope was withdrawn for patient. There is no evidence of any active GI bleed. Positioned the patient's Hemoccult-positive stool was due to antral gastritis or her external hemorrhoids.
[2020-06-07 08:45] VITALS: BP 137/79; PULSE 80
== END 2020-06-07 09:20 | disposition home or self-care (01) ==
LOC: ORWHC2ENDO 07:17
PROVIDERS: ATTEND Surgery
DX: K29.50 Unspecified chronic gastritis without bleeding (principal); K64.4 Residual hemorrhoidal skin tags; K21.9 Gastro-esophageal reflux disease without esophagitis; K92.2 Gastrointestinal hemorrhage, unspecified; M19.90 Unspecified osteoarthritis, unspecified site; E07.9 Disorder of thyroid, unspecified; I10 Essential (primary) hypertension; E78.5 Hyperlipidemia, unspecified; E11.9 Type 2 diabetes mellitus without complications; I49.9 Cardiac arrhythmia, unspecified; Z96.642 Presence of left artificial hip joint; Z96.652 Presence of left artificial knee joint; Z98.890 Other specified postprocedural states; Z87.891 Personal history of nicotine dependence; Z85.3 Personal history of malignant neoplasm of breast; Z79.890 Hormone replacement therapy; Z79.899 Other long term (current) drug therapy; Z88.0 Allergy status to penicillin
CPT/HCPCS: 88305; 45378; 43239; J2250; J2001; J3010; J2704

== ENCOUNTER → 2020-06-27 | Outpatient (CLI) | payer MEDICARE ==
--- NOTE | 2020-06-27 10:59 | FL ---
EXAMINATION TYPE: FL barium swallow DATE OF EXAM: 06/27/2020 10:35 AM COMPARISON: NONE CLINICAL HISTORY: K21 GERD Preliminary view of the abdomen reveals a normal bowel gas pattern. Mild degenerative changes are not ed of the thoracolumbar spine. Upper GI examination was performed according to the air contrast techn ique. Barium and effervescent crystal was swallowed without difficulty or delay. Esophageal perista lsis and motility are within normal limits. Noted are changes of prior De fundoplication. No evid ence for recurrent hiatal hernia. There is a mild gastroesophageal reflux without esophagitis. The st omach has a normal appearance in terms of its size, shape and location. No gastric filling defects o r ulcer craters are seen. The duodenal bulb and sweep are also free of intraluminal lesion or ulcer crater. IMPRESSION: There is a mild gastroesophageal reflux without esophagitis.
== END | disposition home or self-care (01) ==
LOC: RADUSWWP 06-08 08:52
PROVIDERS: ATTEND Surgery
DX: K21.9 Gastro-esophageal reflux disease without esophagitis (principal)
CPT/HCPCS: 74220

== ENCOUNTER → 2020-07-24 | Outpatient (CLI) | payer MEDICARE ==
--- NOTE | 2020-07-25 07:08 | US ---
EXAMINATION TYPE: US thyroid st tissue head/neck DATE OF EXAM: 07/24/2020 COMPARISON: CT CLINICAL HISTORY: Hypothyroidism E03.9. Patient stated has been taking Levothyroxine x years. GLAND SIZE: Right Lobe: 3.3 x 1.4 x 0.9 cm Overall Parenchyma: heterogenous Left Lobe: 3.7 x 0.9 x 1.0 cm Overall Parenchyma: heterogeneous Isthmus Thickness: 0.2 cm US findings: No discreet nodules seen in lobular appearance to bilateral thyroid. RIGHT: # of nodules measured on right: 0 LEFT: # of nodules measured on left: 0 ISTHMUS: # of nodules measured in the isthmus: 0 Bilateral neck scanned: no evidence of lymphadenopathy. IMPRESSION: No distinct thyroid nodularity. Glandular heterogeneity is nonspecific.
== END | disposition home or self-care (01) ==
LOC: RADUSWWP 16:16
PROVIDERS: ATTEND Family Medicine
DX: E07.89 Other specified disorders of thyroid (principal); E03.9 Hypothyroidism, unspecified
CPT/HCPCS: 76536

== ENCOUNTER 2020-08-17 14:11 | Emergency (ER) | payer MEDICARE ==
[2020-08-17] MEDS ORDERED: SODIUM CHLORIDE 0.9% 500 ML 500 ML IV STA (14:46)
[2020-08-17] MEDS ORDERED: ACETAMINOPHEN TAB 500 MG TAB PO STA (14:52)
[2020-08-17 14:59] LABS: Basophils % (A) 0 %; Eosinophils # (A) 0.3 k/uL (0-0.7); Eosinophils % (A) 4 %; HCT 30.4 % (34.0-46.0); HGB 10.6 gm/dL (11.4-16.0); Lymphocytes # (A) 1.7 k/uL (1.0-4.8); Lymphocytes % (A) 21 %; MCH 33.1 pg (25.0-35.0); MCV 94.6 fL (80.0-100.0); Mean Platelet Volume 7.6; Monocytes # (A) 0.5 k/uL (0-1.0); Monocytes % (A) 7 %; Neutrophils # (A) 5.4 k/uL (1.3-7.7); Neutrophils % (A) 67 %; Platelet Count 218 k/uL (150-450); RBC 3.21 m/uL (3.80-5.40); RDW 12.7 % (11.5-15.5); WBC 8.1 k/uL (3.8-10.6)
--- NOTE | 2020-08-17 15:01 | ED ---
General Adult HPI - General Chief complaint: Arrhythmia/Palpitations Stated complaint: Tachycardia/Poss Blood Clot Time Seen by Provider: 08/17/20 14:26 Source: patient, RN notes reviewed, old records reviewed Mode of arrival: wheelchair Limitations: no limitations - History of Present Illness Initial comments: 69-year-old female presenting for evaluation of palpitations, racing heart. Patient is 5 days postop a left total knee which was done at an outside hospital. She has had some swelling in the left leg postoperatively. She is noted to be febrile and additionally does report a loss of taste over the past several days. She denies significant cough. Denies vomiting or diarrhea but has had a very poor appetite. She is not currently on any anticoagulation. - Related Data Home Medications Medication Instructions Recorded Confirmed Levothyroxine Sodium [Synthroid] 75 mcg PO DAILY 08/25/18 08/17/20 Albuterol Inhaler [Ventolin Hfa 2 puff INHALATION RT-QID PRN 08/17/20 08/17/20 Inhaler] Atorvastatin [Lipitor] 20 mg PO HS 08/17/20 08/17/20 HYDROcodone/APAP 5-325MG [[place] 1 tab PO Q4H PRN 08/17/20 08/17/20 5-325] Metoprolol Succinate (ER) [Toprol 25 mg PO BID 08/17/20 08/17/20 Xl] Omeprazole 40 mg PO DAILY 08/17/20 08/17/20 Ondansetron [Zofran ODT] 4 mg PO Q8H PRN 08/17/20 08/17/20 Allergies Allergy/AdvReac Type Severity Reaction Status Date / Time Penicillins Allergy Unknown Verified 08/17/20 15:45 Childhood Review of Systems ROS Statement: Those systems with pertinent positive or pertinent negative responses have been documented in the HPI. ROS Other: All systems not noted in ROS Statement are negative. Past Medical History Past Medical History: GERD/Reflux, Osteoarthritis (OA), Thyroid Disorder Additional Past Medical History / Comment(s): IRREGULAR HEARTBEAT History of Any Multi-Drug Resistant Organisms: None Reported Past Surgical History: Back Surgery, Heart Catheterization, Joint Replacement, Orthopedic Surgery Additional Past Surgical History / Comment(s): Lung surgery for bacteriavium removal, stomach surgery for acid reflux, left hip replacement, left knee arthroscopy.TOTAL LEFT KNEE Past Anesthesia/Blood Transfusion Reactions: No Reported Reaction Past Psychological History: Anxiety, Panic Disorder Smoking Status: Former smoker Past Alcohol Use History: None Reported Past Drug Use History: None Reported - Past Family History Mother Family Medical History: Cancer Additional Family Medical History / Comment(s): BREAST CANCER General Exam Limitations: no limitations General appearance: alert, in no apparent distress Head exam: Present: atraumatic, normocephalic Eye exam: Present: normal appearance, PERRL ENT exam: Present: normal exam Neck exam: Present: normal inspection. Absent: tenderness, meningismus Respiratory exam: Present: normal lung sounds bilaterally. Absent: respiratory distress, wheezes, rales Cardiovascular Exam: Present: normal rhythm, tachycardia GI/Abdominal exam: Present: soft. Absent: distended, tenderness, guarding Extremities exam: Present: joint swelling (Bandage is clean dry and intact there is ecchymosis and generalized swelling to the left knee, left calf.) Course Vital Signs 08/17/20 08/17/20 08/17/20 14:19 14:42 14:47 Temperature 98.2 F 100.0 F H Pulse Rate 112 H 111 H Pulse Rate [ 106 H Left Pulse Oximetery] Respiratory 18 19 Rate Blood Pressure 157/73 165/85 O2 Sat by Pulse 97 98 Oximetry 08/17/20 15:59 Temperature 99.3 F Pulse Rate 98 Pulse Rate [ Left Pulse Oximetery] Respiratory 18 Rate Blood Pressure 127/88 O2 Sat by Pulse 98 Oximetry EKG Findings - EKG Comments: EKG Findings:: EKG: Sinus tachycardia, rate of 107, AZ interval 140, QRS duration 80, QTC 43, no ST segment elevation. Medical Decision Making - Medical Decision Making 69-year-old female with palpitations. Workup reveals normal white blood cell count, hemoglobin 10.6 which is relatively stable for this patient. She has normal white lites, normal kidney function, negative coronavirus test. I did perform a CT angiography in the setting of left total knee replacement. This is negative for PE. Patient states the swelling in her knees improved in not worsening. Tylenol has been relieving her pain. She will follow-up with orthopedic surgery regarding her knee. She will return the emergency department with worsening or changing symptoms. - Lab Data Result diagrams: 08/17/20 14:50 08/17/20 14:50 Lab Results 08/17/20 08/17/2008/17/21 Range/Units 14:50 14:50 14:50 WBC 8.1 (3.8-10.6) k/uL RBC 3.21 L (3.80-5.40) m/uL Hgb 10.6 L (11.4-16.0) gm/dL Hct 30.4 L (34.0-46.0) % MCV 94.6 (80.0-100.0) fL MCH 33.1 (25.0-35.0) pg MCHC 35.0 (31.0-37.0) g/dL RDW 12.7 (11.5-15.5) % Plt Count 218 (150-450) k/uL MPV 7.6 Neutrophils % 67 % Lymphocytes % 21 % Monocytes % 7 % Eosinophils % 4 % Basophils % 0 % Neutrophils # 5.4 (1.3-7.7) k/uL Lymphocytes # 1.7 (1.0-4.8) k/uL Monocytes # 0.5 (0-1.0) k/uL Eosinophils # 0.3 (0-0.7) k/uL Basophils # 0.0 (0-0.2) k/uL PT 9.9 (9.0-12.0) sec INR 0.9 (<1.2) APTT 21.9 L (22.0-30.0) sec Sodium 137 (137-145) mmol/L Potassium 4.0 (3.5-5.1) mmol/L Chloride 100 (98-107) mmol/L Carbon Dioxide 31 H (22-30) mmol/L Anion Gap 6 mmol/L BUN 9 (7-17) mg/dL Creatinine 0.64 (0.52-1.04) mg/dL Est GFR (CKD-EPI)AfAm >90 (>60 ml/min/1.73 sqM) Est GFR (CKD-EPI)NonAf >90 (>60 ml/min/1.73 sqM) Glucose 115 H (74-99) mg/dL Calcium 8.8 (8.4-10.2) mg/dL Magnesium 1.9 (1.6-2.3) mg/dL Total Bilirubin 0.9 (0.2-1.3) mg/dL AST 43 H (14-36) U/L ALT 30 (4-34) U/L Alkaline Phosphatase 93 (38-126) U/L Troponin I (0.000-0.034) ng/mL Total Protein 6.6 (6.3-8.2) g/dL Albumin 3.7 (3.5-5.0) g/dL Coronavirus (PCR) (Not Detectd) 08/17/20 08/17/20 Range/Units 14:50 14:51 WBC (3.8-10.6) k/uL RBC (3.80-5.40) m/uL Hgb (11.4-16.0) gm/dL Hct (34.0-46.0) % MCV (80.0-100.0) fL MCH (25.0-35.0) pg MCHC (31.0-37.0) g/dL RDW (11.5-15.5) % Plt Count (150-450) k/uL MPV Neutrophils % % Lymphocytes % % Monocytes % % Eosinophils % % Basophils % % Neutrophils # (1.3-7.7) k/uL Lymphocytes # (1.0-4.8) k/uL Monocytes # (0-1.0) k/uL Eosinophils # (0-0.7) k/uL Basophils # (0-0.2) k/uL PT (9.0-12.0) sec INR (<1.2) APTT (22.0-30.0) sec Sodium (137-145) mmol/L Potassium (3.5-5.1) mmol/L Chloride (98-107) mmol/L Carbon Dioxide (22-30) mmol/L Anion Gap mmol/L BUN (7-17) mg/dL Creatinine (0.52-1.04) mg/dL Est GFR (CKD-EPI)AfAm (>60 ml/min/1.73 sqM) Est GFR (CKD-EPI)NonAf (>60 ml/min/1.73 sqM) Glucose (74-99) mg/dL Calcium (8.4-10.2) mg/dL Magnesium (1.6-2.3) mg/dL Total Bilirubin (0.2-1.3) mg/dL AST (14-36) U/L ALT (4-34) U/L Alkaline Phosphatase (38-126) U/L Troponin I <0.012 (0.000-0.034) ng/mL Total Protein (6.3-8.2) g/dL Albumin (3.5-5.0) g/dL Coronavirus (PCR) Not Detected (Not Detectd) Disposition Clinical Impression: Palpitations Disposition: HOME SELF-CARE Condition: Good Instructions (If sedation given, give patient instructions): Heart Palpitations (ED) Additional Instructions: Follow-up with her orthopedic surgeon. Please return the emergency department with worsening or changing symptoms. Is patient prescribed a controlled substance at d/c from ED?: No Referrals: Cindy Bear MD [Primary Care Provider] - 1-2 days Decision to Admit Reason: Admit from EC Decision Date: 08/17/20 Decision Time: 16:31
[2020-08-17 15:14] LABS: ALT 30 U/L (4-34); AST 43 U/L (14-36); African American GFR (CKD) >90 (>60 ml/min/1.73 sqM); Albumin 3.7 g/dL (3.5-5.0); Alkaline Phosphatase 93 U/L (38-126); Anion Gap 6 mmol/L; Blood Urea Nitrogen 9 mg/dL (7-17); Calcium 8.8 mg/dL (8.4-10.2); Carbon Dioxide 31 mmol/L (22-30); Chloride 100 mmol/L (98-107); Glucose 115 mg/dL (74-99); INR 0.9 (<1.2); Magnesium 1.9 mg/dL (1.6-2.3); Non-African American GFR(CKD) >90 (>60 ml/min/1.73 sqM); Partial Thromboplastin Time 21.9 sec (22.0-30.0); Prothrombin Time 9.9 sec (9.0-12.0); Sodium 137 mmol/L (137-145); Total Bilirubin 0.9 mg/dL (0.2-1.3); Total Protein 6.6 g/dL (6.3-8.2)
--- NOTE | 2020-08-17 15:52 | CT ---
EXAMINATION TYPE: CT angio chest DATE OF EXAM: 08/17/2020 3:40 PM COMPARISON: CT chest May 15, 2020 HISTORY: Tachycardia/Poss blood clot CT DLP: 277 mGycm Automated exposure control for dose reduction was used. CONTRAST: CTA scan of the thorax is performed with IV Contrast, patient injected with 100, wasted 26 mL of Isov ue 370, pulmonary embolism protocol. . FINDINGS: LUNGS: Persistent medial anterior left upper lung scarring. More prominent mild left basilar linear s carring and/or atelectasis. New focal mild to moderate linear scarring or atelectasis anterior medial right middle lobe axial image 89. No suspicious nodules or masses. There is no pleural effusion or p neumothorax seen bilaterally. The tracheobronchial tree is patent. MEDIASTINUM: There is satisfactory enhancement of the pulmonary artery and its branches, there is no CT evidence for pulmonary embolism. Satisfactory enhancement of the aorta without aneurysm or dissect ion. Mild calcified plaque. There are no new greater than 1 cm hilar or mediastinal lymph nodes. Mil d cardiomegaly. Small to tiny pericardial effusion is stable. OTHER: Exaggerated kyphosis. Multilevel spurring in the spine. IMPRESSION: No CT evidence for acute pulmonary embolism. No suspicious new acute pulmonary process.
[2020-08-17 16:01] VITALS: TEMP 99.3
[2020-08-17 16:38] VITALS: BP 164/74; PULSE 87; RESP 19
== END 2020-08-17 16:44 | disposition home or self-care (01) ==
LOC: EC 14:11
DX: R00.2 Palpitations (principal); R00.0 Tachycardia, unspecified; K21.9 Gastro-esophageal reflux disease without esophagitis; E07.9 Disorder of thyroid, unspecified; Z20.822 Contact with and (suspected) exposure to COVID-19; Z79.890 Hormone replacement therapy; Z79.899 Other long term (current) drug therapy; Z88.0 Allergy status to penicillin; Z87.891 Personal history of nicotine dependence; Z95.5 Presence of coronary angioplasty implant and graft; Z96.642 Presence of left artificial hip joint
CPT/HCPCS: 99285; 36415; 93005; 80053; 83735; 84484; 85025; 85610; 85730; 87635; 71275; Q9967

== ENCOUNTER → 2021-04-02 | Outpatient (CLI) | payer MEDICARE ==
--- NOTE | 2021-04-03 14:02 | MM ---
Reason for exam: screening (asymptomatic). Last mammogram was performed 1 year and 11 months ago. History: Patient is postmenopausal. Family history of breast cancer in mother at age 70. Physical Findings: A clinical breast exam by your physician is recommended on an annual basis and results should be correlated with mammographic findings. MG 3D Screening Mammo W/Cad Bilateral CC and MLO view(s) were taken. Prior study comparison: March 14, 2019, mammogram, performed at [facility]. There are scattered fibroglandular densities. Some underlying nodularity becomes apparent central left CC view on 3D images. Additional evaluation recommended. ASSESSMENT: Incomplete: need additional imaging evaluation, BI-RAD 0 RECOMMENDATION: Special view mammogram of the left breast. (3D) If lesion persists on supplemental views, image directed ultrasound is recommended. [facility] will attempt to contact patient to return for supplemental views and ultrasound if indicated.
== END | disposition home or self-care (01) ==
LOC: RADMAMWWP 15:05
PROVIDERS: ATTEND Family Medicine
DX: Z12.31 Encounter for screening mammogram for malignant neoplasm of breast (principal); Z78.0 Asymptomatic menopausal state; Z80.3 Family history of malignant neoplasm of breast
CPT/HCPCS: 77063; 77067

== ENCOUNTER → 2021-04-09 | Outpatient (CLI) | payer MEDICARE ==
--- NOTE | 2021-04-10 08:32 | MM ---
Reason for exam: additional evaluation requested from abnormal screening. Last mammogram was performed less than 1 month ago. History: Patient is postmenopausal. Family history of breast cancer in mother at age 70. Physical Findings: Nurse did not find any significant physical abnormalities on exam. MG 3D Work Up W/Cad LT Spot compression CC and LM view(s) were taken of the left breast. Prior study comparison: April 02, 2021, bilateral MG 3d screening mammo w/cad. March 14, 2019, mammogram, performed at [facility]. The breast tissue is heterogeneously dense. This may lower the sensitivity of mammography. Focal asymmetry left upper inner quadrant, 10-11 o'clock posterior position 3-5mm, 7cm from nipple. These results were verbally communicated with the patient and result sheet given to the patient on 04/09/21. ASSESSMENT: Incomplete: need additional imaging evaluation, BI-RAD 0 RECOMMENDATION: Ultrasound of the left breast.
--- NOTE | 2021-04-10 08:34 | USB ---
Reason for exam: additional evaluation requested from abnormal screening. History: Patient is postmenopausal. Family history of breast cancer in mother at age 70. US Breast Workup Limited LT Left limited breast ultrasound including focal area of concern, retroareolar and axilla demonstrates a 0.4 x 0.3 x 0.4cm cystic lesion versus duct at 2 o'clock and a 0.3 x 0.3 x 0.2cm oval, cystic lesion at 11 o'clock. These results were verbally communicated with the patient and result sheet given to the patient on 04/09/21. ASSESSMENT: Probably benign, BI-RAD 3 RECOMMENDATION: Follow-up diagnostic mammogram and ultrasound of the left breast in 6 months.
== END ==
LOC: RADMAMWWP 11:01
PROVIDERS: ATTEND Family Medicine
DX: R92.8 Other abnormal and inconclusive findings on diagnostic imaging of breast (principal)
CPT/HCPCS: 77065; 76642; G0279; 77061

== ENCOUNTER → 2021-11-06 | Outpatient (CLI) | payer MEDICARE ==
--- NOTE | 2021-11-06 14:52 | MM ---
Reason for exam: follow-up at short interval from prior study. Last mammogram was performed 7 months ago. History: Patient is postmenopausal. Family history of breast cancer in mother at age 70. Physical Findings: A clinical breast exam by your physician is recommended on an annual basis and results should be correlated with mammographic findings. MG 3D Diag Mammo W/Cad LT CC and MLO view(s) were taken of the left breast. Prior study comparison: April 02, 2021, bilateral MG 3d screening mammo w/cad. The breast tissue is heterogeneously dense. This may lower the sensitivity of mammography. There are benign appearing round calcifications in the left breast. There is no discrete abnormality. ASSESSMENT: Benign, BI-RAD 2 RECOMMENDATION: Return to routine screening mammogram schedule for both breasts. Back on schedule.
--- NOTE | 2021-11-06 14:54 | USB ---
Reason for exam: follow-up at short interval from prior study. History: Patient is postmenopausal. Family history of breast cancer in mother at age 70. Physical Findings: A clinical breast exam by your physician is recommended on an annual basis and results should be correlated with mammographic findings. US Breast Limited LT Left limited breast ultrasound including focal area of concern, retroareolar and axilla demonstrates a 0.3 x 0.3 x 0.3cm round, cystic lesion at 11 o'clock 7cm from nipple, a 0.3 x 0.2 x 0.3cm stable lesion too small to characterize at 2 o'clock 4cm from nipple and duct ectasia at the posterior nipple. Scanned 11-3 o'clock. ASSESSMENT: Benign, BI-RAD 2 RECOMMENDATION: Return to routine screening mammogram schedule for both breasts. Back on schedule.
== END | disposition home or self-care (01) ==
LOC: RADMAMWWP 12:41
PROVIDERS: ATTEND Family Medicine
DX: R92.8 Other abnormal and inconclusive findings on diagnostic imaging of breast (principal); Z78.0 Asymptomatic menopausal state; Z80.3 Family history of malignant neoplasm of breast
CPT/HCPCS: 77065; 76642; G0279; 77061

== ENCOUNTER → 2022-10-30 | Outpatient (CLI) | payer MEDICARE, OTHER ==
[2022-10-30 16:41] LABS: Basophils # (A) 0.08 X 10*3/uL (0.00-0.10); Basophils % (A) 1.1 %; Eosinophils # (A) 1.91 X 10*3/uL (0.04-0.35); Eosinophils % (A) 26.1 %; HCT 43.6 % (37.2-46.3); HGB 14.5 g/dL (12.0-15.0); Immature Grans, Automated 0.1 %; Lymphocytes % (A) 30.1 %; MCH 31.5 pg (27.0-32.0); MCHC 33.3 g/dL (32.0-37.0); MCV 94.8 fL (80.0-97.0); Mean Platelet Volume 11.2 fL (9.5-12.2); Monocytes # (A) 0.55 X 10*3/uL (0.20-1.00); Monocytes % (A) 7.5 %; NRBC Per 100 WBC 0 /100 WBCS (0.0-0.0); Neutrophils # (A) 2.57 X 10*3/uL (1.80-7.70); Neutrophils % (A) 35.1 %; Platelet Count 180 X 10*3/uL (140-440); RDW 13.2 % (11.5-14.5); WBC 7.32 X 10*3/uL (4.50-10.00)
[2022-10-30 19:23] LABS: Anion Gap 10.8 mmol/L (10.00-18.00); Carbon Dioxide 26.8 mmol/L (20.0-27.5); Non-African American GFR(CKD) 67.3 (60.0-200.0); Potassium 4.5 mmol/L (3.5-5.5)
== END | disposition home or self-care (01) ==
LOC: LABPAT 10:51
PROVIDERS: ATTEND Internal Medicine Interventional Cardiology
DX: Z01.812 Encounter for preprocedural laboratory examination (principal); I25.10 Atherosclerotic heart disease of native coronary artery without angina pectoris
CPT/HCPCS: 80051; 82565; 84520; 85025

== ENCOUNTER → 2022-11-11 | Day surgery (SDC) | payer MEDICARE, OTHER ==
[2022-11-07 13:36] VITALS: BMI 31.3
[~2022-11-11] MED LIST changes: +ALPRAZolam 0.25 MG TAB PO PRN; +ALPRAZolam 0.5 MG TAB PO PRN; +ASPIRIN 325 MG TAB PO STA; +HEPARIN SODIUM 1,000 UN/ML (10ML VL) IV ONE; +HEPARIN SODIUM 1,000 UN/ML (10ML VL) ONE; +HYDROmorphone 0.5 MG/0.5 ML SYRINGE IVP ONE; +IOPAMIDOL-370 125ML BTL INJ ONE; -LACTATED RINGERS 1,000 ML IV SCH; +LIDOCAINE 1% INJ 10MG/ML (5 ML VIAL-PF) SQ ONE; +MIDAZOLAM 2 MG/2 ML VIAL IV ONE; +NITROGLYCERIN SL TABS 0.4 MG TAB SUBLINGUAL PRN; +RX INFO: IV CONTRAST WAS GIVEN 1 EACH MISC MISCELLANE PRN; +SODIUM CHLORIDE 0.9% 1,000 ML IV ONE; +SODIUM CHLORIDE 0.9% 1,000 ML IV SCH; +SODIUM CHLORIDE 0.9% 1,000 ML in EMPTY BAG 1 BAG IV SCH; +VERAPAMIL 2.5 MG/ML 2 ML AMP ONE; +VERAPAMIL SYRINGE (5 MG/10 ML) INTRAARTER ONE
[2022-11-11 11:25] VITALS: RESP 16; TEMP 98.8
--- NOTE | 2022-11-11 13:39 | P.PCN ---
Date of Procedure: 11/11/22 Operative Findings: CARDIAC CATHETERIZATION PERFORMING PHYSICIAN: Justin Herring MD, RPVI PROCEDURE PERFORMED: 1. Selective right and left coronary angiogram 2. Left heart catheterization 3. iFR of the LAD INDICATION: Chest discomfort in this 72-year-old female patient was underwent myocardial perfusion imaging stress that showed anterior ischemia COMPLICATION: None APPROACH: Right radial artery LEVEL OF SEDATION: Moderate with a sedation length of 45 minutes PROCEDURE DESCRIPTION: After obtaining an informed consent, the patient was brought to cardiac cathode washer. Local anesthesia was performed using lidocaine subcutaneously. The right radial artery was cannulated using Seldinger technique, the guidewire passed easily, following that we advanced a 5-Indonesian sheath dilator assembly, the wire and dilator were removed and sheath was flushed. Following that, 2 mg of verapamil along with 5000 unit heparin were given. Selective right and left coronary angiogram using a 6-Indonesian JR4 and JL 3.5 catheters. Following that we did left heart catheterization using 6-Indonesian pigtail catheter. The procedure was completed there was no complication. SELECTIVE CORONARY ANGIOGRAM: The right coronary artery: Large caliber vessel and a dominant vessel. Its angiographically normal. Left main: Is angiographically normal. Bifurcates into an LCx and LAD The left circumflex: Large caliber vessel and none dominant vessel. Its angiographically normal and gives rise into a large OM branch which appeared to be angiographically normal. The left anterior descending artery: Large caliber vessel. The mid LAD has intermediate lesion appeared to be in the range of 50%. We did an FFR came in to be nonischemic. HEMODYNAMICS: The LVEDP was 12 mmHg was no significant gradient across aortic valve iFR OF THE LAD, After zeroing the Doppler wire and equalizing between the Doppler wire and the guiding catheter we did an iFR came in to be 0.96 which is nonischemic. CONCLUSION: 1. Intermediate lesion involving the mid LAD. Doppler wire was performed and showed that the lesion is not flow limiting 2. Normal LVEDP POSTPROCEDURE MANAGEMENT: Medical reatment and follow-up with the patient
[2022-11-11 17:12] VITALS: BP 140/64; PULSE 75
== END ==
LOC: CATHCVL 10:38
PROVIDERS: ATTEND Internal Medicine Interventional Cardiology
DX: I25.10 Atherosclerotic heart disease of native coronary artery without angina pectoris (principal); E78.5 Hyperlipidemia, unspecified; E11.9 Type 2 diabetes mellitus without complications; I34.0 Nonrheumatic mitral (valve) insufficiency; Z82.49 Family history of ischemic heart disease and other diseases of the circulatory system; Z79.899 Other long term (current) drug therapy
CPT/HCPCS: 93458; 93799; C1887; C1769 ×2; C1894; J2250; J2001; J1644; J1170; Q9967

== ENCOUNTER → 2022-12-11 | Outpatient (CLI) | payer MEDICARE, OTHER ==
--- NOTE | 2022-12-11 11:14 | US ---
EXAMINATION TYPE: US venous doppler duplex LE LT DATE OF EXAM: 12/11/2022 11:00 AM COMPARISON: NONE CLINICAL INDICATION: Female, 72 years old with history of M25.562 M79.605; PAIN SIDE PERFORMED: Left TECHNIQUE: The lower extremity deep venous system is examined utilizing real time linear array sonog amador with graded compression, doppler sonography and color-flow sonography. VESSELS IMAGED: Common Femoral Vein Deep Femoral Vein Greater Saphenous Vein * Femoral Vein Popliteal Vein Small Saphenous Vein * Proximal Calf Veins (* superficial vessels) Left Leg: Negative for DVT IMPRESSION: Grayscale, color doppler, spectral doppler imaging performed of the deep veins of the lo wer extremities. There is normal flow, compressibility, vascular waveforms.
--- NOTE | 2022-12-11 14:27 | XR ---
EXAMINATION TYPE: XR sacroiliac joint comp BILAT DATE OF EXAM: 12/11/2022 COMPARISON: NONE HISTORY: Pain TECHNIQUE: 4 views submitted. FINDINGS: SI joints are symmetric. Sacral alae are intact. There is no erosive changes. Previous surg tadeo involving the left hip. IMPRESSION: 1. Normal SI joints series. 2. Degenerative changes lower lumbar spine.
--- NOTE | 2022-12-11 15:40 | XR ---
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 Vascular calcifications seen. Visualiz ed osseous structures intact. Postsurgical change involving the left hip. IMPRESSION: Postoperative change
--- NOTE | 2022-12-11 15:43 | XR ---
EXAMINATION TYPE: XR Hip Complete LT DATE OF EXAM: 12/11/2022 COMPARISON: NONE HISTORY: Pain TECHNIQUE: 2 views submitted FINDINGS: There is no evidence of erosive change or acute fracture. Osteitis condense sense of the pubic symphy sis. Vascular calcifications in the pelvis. SI joint appears patent. Postsurgical changes noted IMPRESSION: 1. No evidence of acute fracture or dislocation.
--- NOTE | 2022-12-11 15:44 | XR ---
EXAM TYPE: LUMBAR SPINE X RAY SERIES COMPARISON: NONE HISTORY: Pain TECHNIQUE: 4 views are submitted. FINDINGS: Alignment is anatomic. The pedicles are intact. The transverse processes are intact. There is diff use osteopenia with facet arthropathy and degenerative change of the lower lumbar spine. Vascular pradeep cifications noted. Surgical clips in the upper abdomen. IMPRESSION: 1. Degenerative changes lower lumbar spine with facet arthropathy. Suspect foraminal encroachment L4- 5 and L5-S1.
== END | disposition home or self-care (01) ==
LOC: RADUSWWP 10:25
PROVIDERS: ATTEND Family Medicine
DX: M47.816 Spondylosis without myelopathy or radiculopathy, lumbar region (principal); M25.562 Pain in left knee; M25.552 Pain in left hip; M79.605 Pain in left leg; M79.652 Pain in left thigh; Z98.890 Other specified postprocedural states
CPT/HCPCS: 72110; 72202; 73502

== ENCOUNTER 2023-04-16 15:35 | Emergency (ER) | payer MEDICARE, OTHER ==
[2023-04-16 15:51] VITALS: RESP 16; TEMP 98
--- NOTE | 2023-04-16 17:05 | XR ---
EXAMINATION TYPE: XR elbow complete LT DATE OF EXAM: 04/16/2023 4:32 PM CLINICAL INDICATION:Female, 72 years old with history of injury; COMPARISON: None TECHNIQUE: The Left elbow was examined in AP, lateral, and oblique projections. FINDINGS: No evidence of any acute osseous pathology, joint dislocation soft. No evidence of joint ef fusion is present. Soft tissue swelling over the olecranon process. IMPRESSION: No evidence of acute fracture. Soft tissue swelling over the olecranon process correlate for bursitis/sinusitis.
--- NOTE | 2023-04-16 17:16 | ED ---
Upper Extremity HPI - General Chief Complaint: Extremity Injury, Upper Stated Complaint: Fluid on elbow Time Seen by Provider: 04/16/23 16:21 Source: patient Mode of arrival: ambulatory Limitations: no limitations - History of Present Illness Initial Comments: Patient is a 72-year-old female who presents to the emergency department for fluid in left elbow. Patient fell one week ago she was evaluated at urgent care and had normal x-ray. Patient states her left elbow had fluid in it after the injury. States the fluid and swelling has been improving but will not fully go away patient wants it drained. States her primary care provider and urgent care will not drain it. She denies fever, chills, nausea, vomiting. - Related Data Home Medications Medication Instructions Recorded Confirmed Levothyroxine Sodium [Synthroid] 75 mcg PO DAILY 08/25/18 11/07/22 Albuterol Inhaler [Ventolin Hfa 2 puff INHALATION RT-QID PRN 08/17/20 11/11/22 Inhaler] Atorvastatin [Lipitor] 20 mg PO HS 08/17/20 11/11/22 Metoprolol Succinate (ER) [Toprol 25 mg PO QAM 08/17/20 11/07/22 XL] Citalopram Hydrobromide 5 - 10 mg PO DAILY 11/07/22 11/07/22 [Citalopram HBr] Allergies Allergy/AdvReac Type Severity Reaction Status Date / Time Penicillins Allergy Unknown Verified 11/11/22 10:53 Childhood Review of Systems ROS Statement: Those systems with pertinent positive or pertinent negative responses have been documented in the HPI. ROS Other: All systems not noted in ROS Statement are negative. Past Medical History Past Medical History: GERD/Reflux, Osteoarthritis (OA), Thyroid Disorder Additional Past Medical History / Comment(s): IRREGULAR HEARTBEAT History of Any Multi-Drug Resistant Organisms: None Reported Past Surgical History: Joint Replacement, Orthopedic Surgery Additional Past Surgical History / Comment(s): Lung surgery for bacteriavium removal, stomach surgery for acid reflux, left hip replacement, left knee arthroscopy.TOTAL LEFT KNEE Past Anesthesia/Blood Transfusion Reactions: No Reported Reaction Past Psychological History: Anxiety, Panic Disorder Smoking Status: Former smoker - Past Family History Mother Family Medical History: Cancer Additional Family Medical History / Comment(s): BREAST CANCER General Exam Limitations: no limitations General appearance: alert Head exam: Present: atraumatic, normocephalic, normal inspection Eye exam: Present: normal appearance, PERRL, EOMI. Absent: scleral icterus, conjunctival injection, periorbital swelling Respiratory exam: Present: normal lung sounds bilaterally. Absent: respiratory distress, wheezes, rales, rhonchi, stridor Cardiovascular Exam: Present: regular rate, normal rhythm, normal heart sounds. Absent: systolic murmur, diastolic murmur, rubs, gallop, clicks Extremities exam: Present: other (fluid in left elbow no erythema, tenderness, ecchymosis. Neurovascularly intact. Full range of motion. No pain with range of motion.) Neurological exam: Present: alert Psychiatric exam: Present: normal affect, normal mood Skin exam: Present: warm, dry, intact, normal color. Absent: rash Course Vital Signs 04/16/23 04/16/23 15:48 16:40 Temperature 98 F 98 F Pulse Rate 69 71 Respiratory 16 16 Rate Blood Pressure 145/74 139/75 O2 Sat by Pulse 98 98 Oximetry Procedures - Orthopedic Splinting/Casting Injury #1 Side: left Upper Extremity Injury Location: elbow Upper Extremity Immobilizer: Gustavo wrap Medical Decision Making - Medical Decision Making Was pt. sent in by a medical professional or institution (, PA, PARTS ANALYST, urgent care, hospital, or snf...) When possible be specific @ -No Did you speak to anyone other than the patient for history (EMS, parent, family, police, friend...)? What history was obtained from this source @ -No Did you review nursing and triage notes (agree or disagree)? Why? @ -I reviewed and agree with nursing and triage notes Were old charts reviewed (outside hosp., previous admission, EMS record, old EKG, old radiological studies, urgent care reports/EKG's, snf records)? Report findings @ -No old charts were reviewed Differential Diagnosis (chest pain, altered mental status, abdominal pain women, abdominal pain men, vaginal bleeding, weakness, fever, dyspnea, syncope, headache, dizziness, GI bleed, back pain, seizure, CVA, palpatations, mental health)? @ -bursitis, septic joint, hematoma, fracture EKG interpreted by me (3pts min.). @ -As above X-rays interpreted by me (1pt min.). @ -Bursitis without osseous abnormality CT interpreted by me (1pt min.). @ -None done U/S interpreted by me (1pt. min.). @ -None done What testing was considered but not performed or refused? (CT, X-rays, U/S, labs)? Why? @ -None What meds were considered but not given or refused? Why? @ -None Did you discuss the management of the patient with other professionals (professionals i.e. , PA, PARTS ANALYST, lab, RT, psych nurse, social welfare clerk, web production designer, teacher, second officer, casework manager)? Give summary @ -No Was smoking cessation discussed for >3mins.? @ -No Was critical care preformed (if so, how long)? @ -No Were there social determinants of health that impacted care today? How? (Homelessness, low income, unemployed, alcoholism, drug addiction, transportation, low edu. Level, literacy, decrease access to med. care, intermediate, rehab)? @ -No Was there de-escalation of care discussed even if they declined (Discuss DNR or withdrawal of care, Hospice)? DNR status @ -No What co-morbidities impacted this encounter? (DM, HTN, Smoking, COPD, CAD, Cancer, CVA, ARF, Chemo, Hep., AIDS, mental health diagnosis, sleep apnea, morbid obesity)? @ -None Was patient admitted / discharged? Hospital course, mention meds given and route, prescriptions, significant lab abnormalities, going to OR and other pertinent info. @ -Patient is swollen left elbow. Bursitis present on exam. No erythema, tenderness. Full range of motion without pain. No evidence of septic joint. X-ray interpreted by myself showing bursitis without osseous abnormality. Patient informed drainage of the elbow is not indicated at this time. The elbow was wrapped in Gustavo bandage patient encouraged to continue anti-inflammatory medication. Patient to avoid strenuous activity with the elbow. She sees her center specialists on next week for follow-up Undiagnosed new problem with uncertain prognosis? @ -No Drug Therapy requiring intensive monitoring for toxicity (Heparin, Nitro, Insulin, Cardizem)? @ -No Were any procedures done? @ -gustavo bandage left elbow Diagnosis/symptom? @ -Left olecranon bursitis Acute, or Chronic, or Acute on Chronic? @ -Acute Uncomplicated (without systemic symptoms) or Complicated (systemic symptoms)? @ -uncomplicated Side effects of treatment? @ -No Exacerbation, Progression, or Severe Exacerbation? @ -No Poses a threat to life or bodily function? How? (Chest pain, USA, MS, pneumonia, PE, COPD, DKA, ARF, appy, cholecystitis, CVA, Diverticulitis, Homicidal, Suicidal, threat to staff... and all critical care pts) @ -No Dr. Dobbins is my attending Disposition Clinical Impression: Olecranon bursitis, left elbow Disposition: HOME SELF-CARE Condition: Good Instructions (If sedation given, give patient instructions): Elbow Bursitis (ED) Additional Instructions: Take Motrin as directed. I recommend keeping compression on the elbow. Elevate the elbow and apply warm compress. Follow-up with center specialists as planned. Return to the emergency department if you experience new, concerning, or worsening symptoms. Is patient prescribed a controlled substance at d/c from ED?: No Referrals: Cindy Bear MD [Primary Care Provider] - 1-2 days
[2023-04-16 17:35] VITALS: BP 139/75; PULSE 71
== END 2023-04-16 17:35 | disposition home or self-care (01) ==
LOC: EC 15:35
DX: M70.22 Olecranon bursitis, left elbow (principal); E07.9 Disorder of thyroid, unspecified; K21.9 Gastro-esophageal reflux disease without esophagitis; F41.0 Panic disorder [episodic paroxysmal anxiety]; Z87.891 Personal history of nicotine dependence; Z79.890 Hormone replacement therapy; Z79.899 Other long term (current) drug therapy; Z88.0 Allergy status to penicillin
CPT/HCPCS: 99283

== ENCOUNTER → 2023-04-16 | Outpatient (CLI) | payer MEDICARE, OTHER ==
--- NOTE | 2023-04-16 15:38 | MR ---
NO CHARGE EXAM EXAMINATION TYPE: MR knee LT wo con DATE OF EXAM: 04/16/2023 The exam is severely limited and was aborted due to excessive metal artifact despite metal artifact r eduction techniques. Consider pursuing this study on a 1.5 Lyssa magnet. There is some thinning of th e distal quadriceps tendon noted, likely on a postsurgical basis..
--- NOTE | 2023-04-17 07:02 | US ---
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
== END | disposition home or self-care (01) ==
LOC: RADUSWWP 13:14
PROVIDERS: ATTEND Family Medicine
DX: M25.562 Pain in left knee (principal); G89.29 Other chronic pain; Z96.652 Presence of left artificial knee joint
CPT/HCPCS: 93922

== ENCOUNTER → 2023-07-28 | Outpatient (CLI) | payer MEDICARE ==
--- NOTE | 2023-07-29 07:21 | US ---
EXAMINATION TYPE: US thyroid st tissue head/neck DATE OF EXAM: 07/28/2023 COMPARISON: NONE CLINICAL INDICATION: Female, 72 years old with history of E01.0 THYROMEGELY; GLAND SIZE: Right Lobe: 3.4 x 1.3 x 1.5 cm Overall Parenchyma: heterogenous Left Lobe: 3.5 x 1.2 x 1.1 cm Overall Parenchyma: heterogenous Isthmus Thickness: 0.1 cm NODULES RIGHT: # of nodules measured on right: 0 LEFT: # of nodules measured on left: 0 ISTHMUS: # of nodules measured in the isthmus: 0 Bilateral neck scanned, no evidence of lymphadenopathy. IMPRESSION: No distinct abnormality seen. 2017 ACR TI-RADS LEVEL: *Highest TI-RADS level nodule reported
== END | disposition home or self-care (01) ==
LOC: RADUSWWP 16:33
PROVIDERS: ATTEND Family Medicine
DX: E01.0 Iodine-deficiency related diffuse (endemic) goiter (principal)
CPT/HCPCS: 76536

== ENCOUNTER → 2023-12-14 | Outpatient (CLI) | payer MEDICARE, OTHER ==
--- NOTE | 2023-12-16 18:04 | MM ---
Reason for Exam: Screening (asymptomatic). Last screening mammogram was performed 12 month(s) ago. Patient History: Menarche at age 10. First Full-Term at age 19. Postmenopausal. Mother had breast cancer, age 70. Risk Values: Jada 5 year model risk: 3.4%. NCI Lifetime model risk: 7.2%. Prior Study Comparison: 04/09/2021 Left Diagnostic Mammogram, [facility]. 11/06/2021 Left Diagnostic Mammogram, [facility]. 12/11/2022 Bilateral MG 3D screening mammo w/cad, [facility]. Tissue Density: There are scattered areas of fibroglandular density. Findings: Analyzed By CAD. 8:00 focal asymmetry anterior right breast is more defined. Further evaluation is recommended. Otherwise, no significant change. Overall Assessment: Incomplete: need additional imaging evaluation, BI-RAD 0 Management: Special View Mammogram of the right breast. Diagnostic Breast Ultrasound of the right breast. . [facility] will attempt to contact patient to return for supplemental views and ultrasound if indicated. Electronically signed and approved by: Ubaldo Rusos M.D. Radiologist
== END | disposition home or self-care (01) ==
LOC: RADMAMWWP 12:37
PROVIDERS: ATTEND Family Medicine
DX: Z12.31 Encounter for screening mammogram for malignant neoplasm of breast (principal); Z80.3 Family history of malignant neoplasm of breast; Z78.0 Asymptomatic menopausal state
CPT/HCPCS: 77063; 77067

== ENCOUNTER → 2023-12-31 | Outpatient (CLI) | payer MEDICARE, OTHER ==
--- NOTE | 2024-01-01 09:49 | MM ---
Reason for Exam: Additional evaluation requested from abnormal screening. Last screening mammogram was performed less than 1 month ago. Patient History: Menarche at age 10. First Full-Term at age 19. Postmenopausal. Mother had breast cancer, age 70. Risk Values: Jada 5 year model risk: 3.4%. NCI Lifetime model risk: 7.2%. Prior Study Comparison: 03/14/2019 Screening Mammogram, [facility]. 04/09/2021 Left Diagnostic Mammogram, [facility]. 11/06/2021 Left Diagnostic Mammogram, [facility]. 12/11/2022 Bilateral MG 3D screening mammo w/cad, [facility]. 12/14/2023 Bilateral MG 3D screening mammo w/cad, [facility]. Tissue Density: Right: There are scattered areas of fibroglandular density. Findings: Analyzed By CAD. Pattern appears stable. On compression no persistent suspicious density is evident. Calcification appears benign in the region of interest. No suspicious groups of microcalcifications, spiculated or lobular masses, architectural distortion or other secondary signs of malignancy are mammographically apparent. Overall Assessment: Benign, BI-RAD 2 Management: Screening Mammogram of both breasts in 1 year. A negative mammogram report should not preclude additional follow up of suspicious palpable abnormalities. Patient should continue monthly self breast exam. A clinical breast exam by your physician is recommended on an annual basis and results should be correlated with mammographic findings. Note on Jada scores and lifetime risk: 1. A Jada score greater than 3% is considered moderate risk. If this is the case, consider specialist referral to assess eligibility for a risk reducing agent. 2. If overall lifetime risk for the development of breast cancer is 20% or higher, the patient may qualify for future screening with alternating mammogram and breast MRI. Electronically signed and approved by: Kush Pinedo D.O. Radiologis
== END | disposition home or self-care (01) ==
LOC: RADMAMWWP 10:10
PROVIDERS: ATTEND Family Medicine
DX: R92.321 Mammographic fibroglandular density, right breast (principal); Z78.0 Asymptomatic menopausal state; Z80.3 Family history of malignant neoplasm of breast
CPT/HCPCS: 77065; G0279; 77061